=== PATIENT | female | born 1935 | race Two or more races ===

== ENCOUNTER 2023-03-24 16:49 | Emergency (ER) | payer SELFPAY ==
[~2023-03-24] VITALS: Ht 165.1 cm; Wt 68.2 kg
[2023-03-24] MEDS ORDERED: TRAM-559 PO (17:04)
[2023-03-24] MEDS ORDERED: METO25 PO (17:04)
[2023-03-24] MEDS ORDERED: ACETAMINOPHEN/CODEINE 300-30 MG TABLET PO ONE (18:00)
[2023-03-24 18:15] LABS: BASOPHILS % (AUTO) 0.6 % (0.0-2.0); EOSINOPHILS % (AUTO) 0.3 % (1.0-6.0); HEMATOCRIT 41.6 % (36-46); HEMOGLOBIN 13.7 g/dL (12.0-16.0); LYMPHOCYTES # (AUTO) 1.8 K/uL (1.0-4.8); LYMPHOCYTES % (AUTO) 15.2 % (22.0-44.0); MEAN CORPUSCULAR HGB CONC 32.8 G/dL (31.0-37.0); MEAN CORPUSCULAR VOLUME 94 fL (80-100); MONOCYTES # (AUTO) 0.8 K/uL (0.1-1.0); MONOCYTES % (AUTO) 7.1 % (2.0-9.0); NEUTROPHILS % (AUTO) 76.8 % (40.0-70.0); PLATELET COUNT (AUTO) 348 K/uL (150-450); RED BLOOD CELL COUNT(AUTO) 4.41 MIL/uL (4.00-5.20); RED CELL DISTRIBUTION WIDTH 14.6 % (11.5-14.5)
[2023-03-24 18:25] LABS: CALCIUM, TOTAL 9.5 mg/dL (8.8-10.5); CREATININE 1.31 mg/dL (0.60-1.30); POTASSIUM 4.5 mmol/L (3.5-5.1)
[2023-03-24 18:31] LABS: ALBUMIN 3.2 g/dL (3.4-5.0); BILIRUBIN,TOTAL 0.4 mg/dL (0.1-1.0); TOTAL PROTEIN, SERUM 7.6 g/dL (6.4-8.2)
[2023-03-24] MEDS ORDERED: ACET-2080 PO (20:19)
[2023-03-24 20:36] VITALS: BP 111/62
== END 2023-03-24 21:00 | disposition home or self-care (01) ==
LOC: EMS 16:49
DX: R13.10 Dysphagia, unspecified (principal); E44.0 Moderate protein-calorie malnutrition; R62.7 Adult failure to thrive; I10 Essential (primary) hypertension; Z85.9 Personal history of malignant neoplasm, unspecified; Z90.49 Acquired absence of other specified parts of digestive tract
CPT/HCPCS: 71045; 80053; 85025; 99284; 36415-L1; 36415-TC

== ENCOUNTER 2023-04-11 07:42 | Emergency (ER) | payer MEDICAID ==
[~2023-04-11] VITALS: Ht 152.4 cm; Wt 61.4 kg
[~2023-04-11 07:42] MED LIST: ACET-2080 PO; METO25 PO; TRAM-559 PO
[2023-04-11] MEDS ORDERED: HYDR-4072 PO (07:55)
[2023-04-11] MEDS ORDERED: SODIUM PHOSPHATE,MONO-DIBASIC 133 ML ENEMA PR ONE (08:30)
[2023-04-11 09:05] LABS: BASOPHILS % (AUTO) 0.8 % (0.0-2.0); EOSINOPHILS % (AUTO) 1.5 % (1.0-6.0); HEMATOCRIT 38.3 % (36-46); HEMOGLOBIN 12.5 g/dL (12.0-16.0); LYMPHOCYTES # (AUTO) 1.8 K/uL (1.0-4.8); LYMPHOCYTES % (AUTO) 19.9 % (22.0-44.0); MEAN CORPUSCULAR HGB CONC 32.8 G/dL (31.0-37.0); MEAN CORPUSCULAR VOLUME 95 fL (80-100); MONOCYTES # (AUTO) 0.9 K/uL (0.1-1.0); MONOCYTES % (AUTO) 9.5 % (2.0-9.0); NEUTROPHILS # (AUTO) 6.3 K/uL (1.8-7.7); NEUTROPHILS % (AUTO) 68.3 % (40.0-70.0); PLATELET COUNT (AUTO) 416 K/uL (150-450); RED BLOOD CELL COUNT(AUTO) 4.05 MIL/uL (4.00-5.20); RED CELL DISTRIBUTION WIDTH 14.6 % (11.5-14.5)
[2023-04-11 09:11] LABS: CREATININE 1.13 mg/dL (0.60-1.30)
[2023-04-11 09:17] LABS: ALBUMIN 2.5 g/dL (3.4-5.0); BILIRUBIN,TOTAL 0.5 mg/dL (0.1-1.0); TOTAL PROTEIN, SERUM 6.8 g/dL (6.4-8.2)
[2023-04-11] MEDS ORDERED: HYDR-4723 PO (11:32)
[2023-04-11 11:49] VITALS: BP 110/72
[2023-04-11] MEDS ORDERED: TRAM-559 PO (13:23)
== END 2023-04-11 12:51 | disposition home or self-care (01) ==
LOC: EMS 07:52
DX: K59.00 Constipation, unspecified (principal); I10 Essential (primary) hypertension; Z90.49 Acquired absence of other specified parts of digestive tract; Z76.0 Encounter for issue of repeat prescription
CPT/HCPCS: 74022; 80053; 83690; 84484; 85025; 93005; 99285